=== PATIENT | female | born 1990 ===

== ENCOUNTER 2017-12-13 15:26 | Emergency (ER) | payer OTHER ==
[2017-12-13 15:26] VITALS: BMI 30.8
[2017-12-13 15:33] VITALS: RESP 18; TEMP 98.8
--- NOTE | 2017-12-13 16:53 | C.PDOC ---
History Of Present Illness 27 y/o female presents to ED with c/o pain and swelling to left ankle after twisting ankle inwards last night when he missed step going down the stairs. Patient denies head injury, sensory changes or any other complaints at this time. Time Seen by Provider: 12/13/17 15:34 Chief Complaint (Nursing): Lower Extremity Problem/Injury History Per: Patient History/Exam Limitations: no limitations Onset/Duration Of Symptoms: Days Current Symptoms Are (Timing): Still Present Past Medical History Reviewed: Historical Data, Nursing Documentation, Vital Signs Vital Signs: Last Vital Signs Temp 98.8 F 12/13/17 15:29 Pulse 90 12/13/17 15:29 Resp 18 12/13/17 15:29 BP 132/87 12/13/17 15:29 Pulse Ox 100 12/13/17 15:29 - Medical History PMH: No Chronic Diseases Surgical History: No Surg Hx - [facility] Procedures DELIVERY OF PRODUCTS OF CONCEPTION, EXTERNAL APPROACH (12/20/15) INTRODUCE OF OTH THERAP SUBST INTO FEM REPROD, VIA OPENING (12/20/15) Family History: States: No Known Family Hx - Social History Hx Alcohol Use: No Hx Substance Use: No - Immunization History Hx Tetanus Toxoid Vaccination: Yes Hx Influenza Vaccination: Yes Hx Pneumococcal Vaccination: Yes Review Of Systems Cardiovascular: Negative for: Chest Pain Musculoskeletal: Positive for: Foot Pain Skin: Negative for: Rash, Bruising Neurological: Negative for: Weakness, Numbness Physical Exam - Physical Exam Appears: Non-toxic, No Acute Distress Skin: Warm, Dry, No Rash Head: Atraumatic, Normacephalic Eye(s): bilateral: Normal Inspection Oral Mucosa: Moist Neck: Normal ROM, Supple Extremity: Tenderness (to left lateral malleolus), Capillary Refill (<2 seconds), No Deformity, Swelling (left lateral malleolus) Pulses: Left Dorsalis Pedis: Normal Neurological/Psych: Oriented x3, Normal Motor, Normal Sensation ED Course And Treatment O2 Sat by Pulse Oximetry: 100 (RA) Pulse Ox Interpretation: Normal Progress Note: Xray no fracture or dislocation noted. Adis wrap, aircast and crutches applied with follow up to podiatry in 1-2 days. 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 WITHIN 1 WEEK USE MEDICATION FOR PAIN NEEDED ELEVATE ANKLE/FOOT MUCH POSSIBLE RETURN TO EMERGENCY ROOM IF SYMPTOMS WORSEN SEGUIRSE CON EL PODIATRISTA EN NATALIO SEMANA UTILICE MEDICAMENTOS PARA EL DOLOR HERIBERTO SE NECESITE ELEVAR TOBILLO / PIE LO MS POSIBLE REGRESAR A LA KAYCE DE EMERGENCIA SI LOS SNTOMAS EMPEORARAN Prescriptions: Naproxen 375 mg PO BID PRN #20 tablet PRN Reason: pain Instructions: Ankle Sprain (DC) Forms: [employer] (Italian) Print Language: POLISH - POA Present On Arrival: Falls Or Trauma - Clinical Impression Clinical Impression: Left ankle sprain - Scribe Statement The provider has reviewed the documentation as recorded by the Scriberic Felix All medical record entries made by the Scribe were at my direction and personally dictated by me. I have reviewed the chart and agree that the record accurately reflects my personal performance of the history, physical exam, medical decision making, and the department course for this patient. I have also personally directed, reviewed, and agree with the discharge instructions and disposition.
--- NOTE | 2017-12-13 16:58 | RAD ---
PROCEDURE: Left Ankle Radiographs. HISTORY: LEFT ANKLE PAIN AFTER FALL COMPARISON: None available FINDINGS: BONES: No acute displaced fracture. JOINTS: No dislocation. SOFT TISSUES: Mild soft tissue swelling. No evidence of radiopaque foreign body. OTHER FINDINGS: None. IMPRESSION: Mild soft tissue swelling. No acute displaced fracture or dislocation identified. If symptoms persist or if there is clinical concern, x-ray follow-up in 7-10 days should be considered.
[2017-12-13 17:20] VITALS: BP 118/72; PULSE 68
[2017-12-13 18:23] VITALS: O2SAT 100
== END 2017-12-13 17:20 | disposition home or self-care (01) ==
LOC: C.ER 15:26
DX: S93.402A Sprain of unspecified ligament of left ankle, initial encounter (principal); X50.9XXA Other and unspecified overexertion or strenuous movements or postures, initial encounter